=== PATIENT | female | born 1940 | race Caucasian/White ===

== ENCOUNTER 2017-04-15 00:03 | Inpatient (IN) | payer MEDICARE ==
[2017-04-15 00:03] VITALS: BMI 29.0
--- NOTE | 2017-04-15 00:23 | C.PDOC ---
History Of Present Illness 77 y/o F c PMHx CHF, asthma/COPD, DM, HTN p/w shortness of breath x 1 hour. Patient awoke 1 hour ago with sudden onset shortness of breath. EMS was called, found patient tachypneic with crackles, JVD, pedal edema, and hypertensive to 200s/100s. En route, patient was given 4 SL nitro, Lasix, and started on CPAP with improvement. Patient denies fever, chest pain. Time Seen by Provider: 04/15/17 00:10 Chief Complaint (Nursing): Shortness Of Breath History Per: Patient History/Exam Limitations: no limitations Onset/Duration Of Symptoms: Hrs (1 hour), Sudden Onset Current Symptoms Are (Timing): Still Present Current Respiratory Medications: See Home Med List Severity: Moderate Associated Symptoms: denies: Fever, Chest Pain Recent travel outside of the [place]: No Additional History Per: Patient Past Medical History Reviewed: Historical Data, Nursing Documentation, Vital Signs Vital Signs: Last Vital Signs Temp 98.1 F 04/15/17 00:09 Pulse 93 H 04/15/17 01:28 Resp 14 04/15/17 01:28 BP 162/98 H 04/15/17 01:28 Pulse Ox 100 04/15/17 01:28 - Medical History PMH: Arthritis, Asthma, CHF, COPD, HTN Denies: Chronic Kidney Disease Family History: States: Unknown Family Hx - Social History Hx Tobacco Use: No Hx Alcohol Use: No Hx Substance Use: No - Immunization History Hx Tetanus Toxoid Vaccination: No Hx Influenza Vaccination: No Hx Pneumococcal Vaccination: No Review Of Systems Except As Marked, All Systems Reviewed And Found Negative. Constitutional: Negative for: Fever Cardiovascular: Negative for: Chest Pain Respiratory: Positive for: Shortness of Breath Physical Exam - Physical Exam Additional Physical Exam Comments: Constitutional: No acute distress. Head: Normocephalic. Atraumatic. Eyes: PERRL. ENT: Moist mucous membranes. Neck: Supple. No JVD. Cardiovascular: Regular rate. Radial pulse 2+ bilaterally. No S3. Chest: No tenderness. Respiratory: In moderate respiratory distress. Bilateral crackles. GI: Soft. Nontender. Nondistended. Back: No CVA tenderness. Musculoskeletal: Pitting edema of lower extremities. Skin: No rash. Neurologic: Alert, no focal deficit. ED Course And Treatment - Laboratory Results Result Diagrams: 04/15/17 00:24 04/15/17 00:24 O2 Sat by Pulse Oximetry: 100 (RA) Pulse Ox Interpretation: Normal Medical Decision Making Medical Decision Making: Plans: * EKG * Blood work up * CXR * UA Patient placed on BiPap immediately upon arrival. Blood pressure much improved at this time, patient states she feels much better. Will continue positive pressure, check labs, EKG, CXR. CXR shows pulmonary edema. EKG shows NSR 90 bpm, no ST elevations. Dr. Parks accepts patient to his service. Disposition Discussed With : Lukas Parks Doctor Will See Patient In The: Hospital - Disposition Disposition: HOSPITALIZED Disposition Time: 02:12 Condition: GUARDED Forms: [facility] ([place]) - Clinical Impression Clinical Impression: CHF exacerbation - Scribe Statement The provider has reviewed the documentation as recorded by the Scribe Destin cordova All medical record entries made by the Scribe were at my direction and personally dictated by me. I have reviewed the chart and agree that the record accurately reflects my personal performance of the history, physical exam, medical decision making, and the department course for this patient. I have also personally directed, reviewed, and agree with the discharge instructions and disposition.
[2017-04-15 00:27] LABS: MEAN CORPUSCULAR HGB CONC 32.2 g/dL (33.0-37.0)
[2017-04-15 00:39] LABS: BASO # 0.1 K/uL (0.0-0.2); BASO % 1.4 % (0.0-2.0); EOS # 1.3 K/uL (0.0-0.7); EOS % 16.3 % (0.0-4.0); HEMATOCRIT 37.9 % (34.0-47.0); LYMPH # 2.9 K/uL (1.0-4.3); MEAN PLATELET VOLUME 10.3 fL (7.2-11.7); MONO # 0.7 K/uL (0.0-0.8); MONO % 9.5 % (0.0-10.0); NRBC % 0.2 % (0.0-2.0); RED CELL DISTRIBUTION WIDTH 16.2 % (11.5-14.5); WHITE BLOOD COUNT 7.7 K/uL (4.8-10.8)
[2017-04-15 00:42] LABS: ALB/GLOB RATIO 1.1 (1.0-2.1); ALKALINE PHOSPHATASE 122 U/L (38-126); ALT/SGPT 21 U/L (9-52); AST/SGOT 20 U/L (14-36); BILIRUBIN,TOTAL 0.3 mg/dL (0.2-1.3); BLOOD UREA NITROGEN 16 mg/dL (7-17); CALCIUM 9.4 mg/dl (8.6-10.4); CARBON DIOXIDE 25 mmol/L (22-30); CHLORIDE 103 mmol/L (98-107); GFR AFRICAN-AMERICAN 53; GLUCOSE,RANDOM 138 mg/dL (65-105); POTASSIUM 3.7 mmol/L (3.6-5.2); SODIUM 140 mmol/L (132-148); TOTAL PROTEIN 7.3 g/dL (6.3-8.3)
[2017-04-15 00:44] LABS: MEAN CELL VOLUME 86.8 fL (81.0-99.0)
[2017-04-15 00:59] LABS: RBC URINE 1 /hpf (0-3); URINE BILIRUBIN NEGATIVE (NEGATIVE); URINE BLOOD NEGATIVE (NEGATIVE); URINE COLOR Colorless (YELLOW); URINE GLUCOSE (UA) NORMAL (Normal); URINE KETONE NEGATIVE (NEGATIVE); URINE LEUKOCYTE ESTERASE TRACE Leu/uL (Negative); URINE PROTEIN 1+ mg/dL (NEGATIVE); URINE UROBILINOGEN NORMAL mg/dL (0.2-1.0); WBC URINE 1 /hpf (0-5)
[2017-04-15] MEDS: Albuterol-Ipratrop 3 mg / 0.5 (3 ml) UD INH SCH ×6 (03:40→23:31)
[2017-04-15 06:37] LABS: BASO # 0.1 K/uL (0.0-0.2); EOS # 0.5 K/uL (0.0-0.7); EOS % 5.5 % (0.0-4.0); HEMATOCRIT 35.6 % (34.0-47.0); LYMPH # 1.1 K/uL (1.0-4.3); LYMPH % 13.8 % (20.0-40.0); MEAN CELL VOLUME 85.7 fL (81.0-99.0); MEAN CORPUSCULAR HEMOGLOBIN 28.6 pg (27.0-31.0); MEAN CORPUSCULAR HGB CONC 33.4 g/dL (33.0-37.0); MEAN PLATELET VOLUME 9.9 fL (7.2-11.7); MONO # 0.5 K/uL (0.0-0.8); MONO % 6.2 % (0.0-10.0); NRBC % 0.2 % (0.0-2.0); RED CELL DISTRIBUTION WIDTH 16.8 % (11.5-14.5); WHITE BLOOD COUNT 8.2 K/uL (4.8-10.8)
[2017-04-15 06:49] LABS: ALB/GLOB RATIO 1.1 (1.0-2.1); BILIRUBIN,TOTAL 0.4 mg/dL (0.2-1.3); CALCIUM 9.9 mg/dl (8.6-10.4); POTASSIUM 4.5 mmol/L (3.6-5.2); TOTAL PROTEIN 7.2 g/dL (6.3-8.3)
--- NOTE | 2017-04-15 07:57 | RAD ---
HISTORY: dyspnea COMPARISON: Portable chest 08/04/2015. FINDINGS: LUNGS: There is diminished radiographic penetration in this exam compared to prior exam 07/27/2015. Constantly, bronchovascular markings appears somewhat increased on this basis alone. Developing infiltrate at the right base is not excluded with linear atelectasis identified in the medial left base superimposed over vascular markings. PLEURA: Borderline right pleural effusion. None is seen the left. No pneumothorax bilaterally. CARDIOVASCULAR: Prominent cardiac silhouette appears stable. OSSEOUS STRUCTURES: No significant abnormalities. VISUALIZED UPPER ABDOMEN: Normal. OTHER FINDINGS: None. IMPRESSION: A developing and infiltrate is questioned at the right base in the interval with trace right pleural effusion also questioned. Prominent cardiac silhouette appears stable.
--- NOTE | 2017-04-15 09:10 | CP.PCM.PN ---
Subjective - Date & Time of Evaluation Date of Evaluation: 04/15/17 Time of Evaluation: 10:40 - Subjective Subjective: PGY 2 Medicine Note- Dr. Parks's service Pt seen and examined in no acute distress. Patient states that she was having some shortness of breath which led her to be evaluated in the ED. Patient states that she is a former smoker. She quit in 2000 when she started having dyspneic spells. She states that she generally does not have problems ambulating. She received several treatments en route to the hospital yesterday which improved her clinical presentation. PMHX- CHF, COPD, DM, HTN, OA Fam hx- unknown Social Hx- smoked less than 1 pack a day for 25 years; denies illicit drug use; admits to a few beers on some weekends Meds: Lisinopril, Metformin, Lipitor, Allopurinol, Atenolol, Nebulizer Allergies- NKDA Objective - Vital Signs/Intake and Output Vital Signs (last 24 hours): Temp Pulse Resp BP Pulse Ox 97.3 F L 84 18 159/79 H 99 04/15/17 07:50 04/15/17 07:50 04/15/17 07:50 04/15/17 09:05 04/15/17 07:50 Intake and Output: 04/15/17 04/15/17 06:59 18:59 Output Total 200 Balance -200 - Medications Medications: Current Medications Albuterol/Ipratropium (Duoneb 3 Mg/0.5 Mg (3 Ml) Ud) 3 ml INH RQ4 [facility] Last Admin: 04/15/17 07:29 Dose: 3 ml Atenolol (Tenormin) 25 mg PO DAILY [facility] Last Admin: 04/15/17 09:05 Dose: 25 mg Furosemide (Lasix) 40 mg IVP BID [facility] Last Admin: 04/15/17 09:05 Dose: 40 mg Lisinopril (Zestril) 20 mg PO DAILY [facility] Last Admin: 04/15/17 09:05 Dose: 20 mg Pneumococcal Polyvalent Vaccine (Pneumovax 23 Vaccine) 0.5 ml IM .ONCE ONE Stop: 04/17/17 10:01 - Labs Labs: 04/15/17 06:24 04/15/17 06:24 PT 10.6 SECONDS (9.7-12.2) 04/15/17 00:24 INR 1.0 04/15/17 00:24 APTT 33 SECONDS (21-34) 04/15/17 00:24 - Constitutional Appears: Non-toxic, No Acute Distress - Head Exam Head Exam: ATRAUMATIC, NORMAL INSPECTION, NORMOCEPHALIC - Eye Exam Eye Exam: EOMI, Normal appearance, PERRL Pupil Exam: NORMAL ACCOMODATION, PERRL - ENT Exam ENT Exam: Mucous Membranes Moist - Neck Exam Neck Exam: Full ROM - Respiratory Exam Respiratory Exam: NORMAL BREATHING PATTERN. absent: Wheezes - Cardiovascular Exam Cardiovascular Exam: REGULAR RHYTHM, +S1, +S2 - GI/Abdominal Exam GI & Abdominal Exam: Soft, Normal Bowel Sounds - Extremities Exam Extremities Exam: Full ROM, Normal Capillary Refill - Neurological Exam Neurological Exam: Alert, Awake, CN II-XII Intact, Oriented x3 - Psychiatric Exam Psychiatric exam: Normal Affect, Normal Mood - Skin Skin Exam: Dry, Normal Color, Warm Assessment and Plan (1) Dyspnea Assessment & Plan: Duonebs as needed, BiPAP at night Lasix 40 mg IV BID CXR: Questionable developing infiltrate at right base with trace pleural effusion also questioned. Prominent cardiac silhouette identified. Cont to monitor Afebrile, no leukocytosis. Status: Acute (2) History of CHF (congestive heart failure) Assessment & Plan: F/U current ECHO report Echo from 07/2014 revealed EF of 36% Lasix 40 mg IV BID Status: Acute (3) HTN (hypertension) Assessment & Plan: Atenolol 25 mg PO daily ( Home med) Of note: This is an interesting choice of home medication for blood pressure control as it is not [facility] first line in treating HTN. Would recommend that patient follow up with her primary doctor regarding this. Status: Acute (4) Gout Assessment & Plan: Allopurinol daily Status: Acute (5) Prophylactic measure Assessment & Plan: SCDs at this time GI Prophylaxis is not indicated Status: Acute - Assessment and Plan (Free Text) Assessment: Discussed with attending. All orders, management and planning per Dr. Parks.
--- NOTE | 2017-04-15 12:16 | CARD ---
APPROVED REPORT EKG Measurement Heart [id number] <Conclusion> Normal sinus rhythm Possible Left atrial enlargement Left ventricular hypertrophy Prolonged QT Abnormal ECG
--- NOTE | 2017-04-15 18:26 | CARD ---
APPROVED REPORT EXAM: Two-dimensional and M-mode echocardiogram with Doppler and color Doppler. Other Information Quality : GoodRhythm : NSR INDICATION Abnormal EKG/Arrhythmia Dyspnea Congestive Heart Failure COPD RISK FACTORS Hypertension 2D DIMENSIONS IVSd0.9 (0.7-1.1cm)LVDd6.4 (3.9-5.9cm) PWd1.0 (0.7-1.1cm)LVDs5.5 (2.5-4.0cm) FS (%) 13.4 %LVEF (%)28.0 (>50%) M-Mode DIMENSIONS Left Atrium (MM)4.85 (2.5-4.0cm)Aortic Root3.25 (2.2-3.7cm) Aortic Cusp Exc.1.99 (1.5-2.0cm) Mitral Valve E/A ratio0.0 TDI E/Lateral E'0.0E/Medial E'0.0 Tricuspid Valve TR Peak [id number] Peak [id number] LEFT VENTRICLE The Left Ventricle is moderately dilated. There is mild to moderate concentric left ventricular hypertrophy. The systolic function is severely impaired. The Ejection Fraction is - 30%. There is global hypokinesis of the left ventricle. Transmitral Doppler flow pattern is Grade I-abnormal relaxation pattern. RIGHT VENTRICLE The right ventricle is normal size. The right ventricular systolic function is normal. ATRIA The left atrium is moderately dilated. The right atrium is mildly dilated. AORTIC VALVE The aortic valve is normal in structure. No aortic regurgitation is present. MITRAL VALVE The mitral valve is normal in structure. Mitral regurgitation is mild. TRICUSPID VALVE The tricuspid valve is normal in structure. There is mild tricuspid regurgitation. Right ventricular systolic pressure is estimated at less than 30 mmHg. PULMONIC VALVE The pulmonic valve is not well visualized. GREAT VESSELS The aortic root is normal in size. The IVC is normal in size and collapses >50% with inspiration. PERICARDIAL EFFUSION There is no pericardial effusion. <Conclusion> The Left Ventricle is moderately dilated. There is mild to moderate concentric left ventricular hypertrophy. The systolic function is severely impaired. The Ejection Fraction is - 30%. The right ventricular systolic function is normal. Mild mitral regurgitation. No pericardial effusion.
[2017-04-15] MEDS: (Novolog) Insulin Aspart, Recombinant 100 u/ml 10 ml vial SC SCH ×2 (18:52→22:53)
[2017-04-15] MEDS ORDERED: Rosuvastatin Calcium 2.5 mg Tab PO SCH (22:00)
[2017-04-16] MEDS: Albuterol-Ipratrop 3 mg / 0.5 (3 ml) UD INH SCH ×4 (03:10→16:25)
[2017-04-16 07:01] LABS: BASO # 0.1 K/uL (0.0-0.2); BASO % 1.4 % (0.0-2.0); EOS # 0.9 K/uL (0.0-0.7); EOS % 14.8 % (0.0-4.0); HEMATOCRIT 36.9 % (34.0-47.0); LYMPH # 1.3 K/uL (1.0-4.3); LYMPH % 20.2 % (20.0-40.0); MEAN CELL VOLUME 85.8 fL (81.0-99.0); MEAN CORPUSCULAR HEMOGLOBIN 28.3 pg (27.0-31.0); MONO # 0.5 K/uL (0.0-0.8); MONO % 8.8 % (0.0-10.0); NRBC % 0.1 % (0.0-2.0); RED CELL DISTRIBUTION WIDTH 16.7 % (11.5-14.5); WHITE BLOOD COUNT 6.2 K/uL (4.8-10.8)
[2017-04-16] MEDS: (Novolog) Insulin Aspart, Recombinant 100 u/ml 10 ml vial SC SCH ×3 (07:30→16:30)
[2017-04-16 07:34] LABS: ALB/GLOB RATIO 0.9 (1.0-2.1); BILIRUBIN,TOTAL 0.6 mg/dL (0.2-1.3); CALCIUM 9.7 mg/dl (8.6-10.4); MAGNESIUM 1.8 mg/dL (1.6-2.3); PHOSPHOROUS 4.1 mg/dL (2.5-4.5); TOTAL PROTEIN 7.6 g/dL (6.3-8.3)
[2017-04-16] MEDS: Potassium Chloride 20 mEq ER Tab PO SCH ×2 (14:32→17:08)
[2017-04-16 16:50] VITALS: BP 119/64; PULSE 91; RESP 20; TEMP 98.5; O2SAT 96
--- NOTE | 2017-04-16 17:44 | PCM.HF ---
Heart Failure Core Measure - Heart Failure Ejection Fraction: Less Than 40 % LAINEY Inhibitor Prescribed: Yes Beta-Maria Del Carmen Prescribed: None Contraindication/Reason for not providing: ON ATENOLOL Angiotensin II Receptor Maria Del Carmen Prescribed: No Contraindication/Reason for not providing: LAINEY AnticoagulationTherapy for Atrial Fibrillation/Atrialflutter: No Contraindication/Reason for not providing: NO AFIB Aldosterone Antagonist Prescribed: No Contraindication/Reason for not providing: RENAL INSUFFICIENCY Hydralazine Nitrate Prescribed: No Contraindication/Reason for not providing: RENAL INSUFFICIENCY Implantable Cardioverter Defibrillator Therapy: No Contraindication/Reason for not providing: NO H/O Cardiac Resynchronization Therapy Prescribed: No Contraindication/Reason for not providing: NO H/O - Follow up Will be discharged to: Home Follow Up Date (must be within 7 days from discharge): 04/21/17 Follow Up Time: 09:00
--- NOTE | 2017-04-16 17:45 | CP.PCM.PN ---
Subjective - Date & Time of Evaluation Date of Evaluation: 04/16/17 Time of Evaluation: 17:44 - Subjective Subjective: PT SEEN AND EVAL'D BY DR. CHA. PT CLEARED FOR D/C. RX FOR LASIX GIVEN TO PT PER DR. CHA REQUEST. TO F/U WITH HIM IN THE OFFICE WITHIN 1 WEEK. NO FURTHER ORDERS. Objective - Vital Signs/Intake and Output Vital Signs (last 24 hours): Temp Pulse Resp BP Pulse Ox 98.5 F 91 H 20 119/64 96 04/16/17 15:10 04/16/17 15:10 04/16/17 15:10 04/16/17 17:11 04/16/17 15:10 Intake and Output: 04/16/17 04/16/17 06:59 18:59 Intake Total 10 350 Balance 10 350 - Medications Medications: Current Medications Albuterol/Ipratropium (Duoneb 3 Mg/0.5 Mg (3 Ml) Ud) 3 ml INH RQ4 [facility] Last Admin: 04/16/17 16:25 Dose: Not Given Atenolol (Tenormin) 25 mg PO DAILY [facility] Last Admin: 04/16/17 09:07 Dose: 25 mg Furosemide (Lasix) 40 mg IVP BID [facility] Last Admin: 04/16/17 17:11 Dose: 40 mg Insulin Aspart (Novolog) 0 unit SC ACHS [facility] PRN Reason: Protocol Last Admin: 04/16/17 12:00 Dose: Not Given Lisinopril (Zestril) 20 mg PO DAILY [facility] Last Admin: 04/16/17 09:07 Dose: 20 mg Pneumococcal Polyvalent Vaccine (Pneumovax 23 Vaccine) 0.5 ml IM .ONCE ONE Stop: 04/17/17 10:01 Potassium Chloride (K-Dur 20 Meq Er Tab) 20 meq PO BID [facility] Last Admin: 04/16/17 17:08 Dose: 20 meq Rosuvastatin Calcium (Crestor) 2.5 mg PO HS [facility] Last Admin: 04/15/17 22:53 Dose: 2.5 mg - Labs Labs: 04/16/17 06:55 04/16/17 06:55 PT 10.6 SECONDS (9.7-12.2) 04/15/17 00:24 INR 1.0 04/15/17 00:24 APTT 33 SECONDS (21-34) 04/15/17 00:24
[2017-04-17] MEDS ORDERED: Pneumococcal 23-Valent Vaccine IM ONE (10:00)
== END 2017-04-16 19:03 | disposition home or self-care (01) | DRG 293 ==
LOC: C.ER 00:03 → C.6T 02:10
PROVIDERS: ADMIT Internal Medicine Pulmonary Disease; ATTEND Internal Medicine Pulmonary Disease
PROC: 5A09357 Assistance with Respiratory Ventilation, Less than 24 Consecutive Hours, Continuous Positive Airway Pressure (ICD-10-PCS; principal; 2017-04-15)
DX: I11.0 Hypertensive heart disease with heart failure (principal); I50.9 Heart failure, unspecified; J44.9 Chronic obstructive pulmonary disease, unspecified; E11.9 Type 2 diabetes mellitus without complications; J45.909 Unspecified asthma, uncomplicated; Z79.4 Long term (current) use of insulin; E78.00 Pure hypercholesterolemia, unspecified; Z87.891 Personal history of nicotine dependence; M19.90 Unspecified osteoarthritis, unspecified site; M10.9 Gout, unspecified